=== PATIENT | female | born 1975 | race American Indian/Alaskan Native ===

== ENCOUNTER 2017-12-14 17:38 | Emergency (ER) | payer MEDICARE ==
[2017-12-15] MEDS ORDERED: MOTRIN PO ONE ×2 (01:48)
--- NOTE | 2017-12-15 01:48 | Emergency Department Report ---
ED Chest Pain HPI - General Chief Complaint: Extremity Injury, Upper Stated Complaint: CHEST/LEFT ARM PAIN/NUMBNESS Time Seen by Provider: 12/15/17 01:47 Source: patient Mode of arrival: Ambulatory Limitations: No Limitations - History of Present Illness Initial Comments: Patient reports that she has pain under her left arm for the last 12 hours. This is prior to coming to the emergency room. She says she has numbness in her left hand. Patient states she started having pain under her left breast that she felt could've been from her bra. She states she had a cold last week but not the flu. She is also reporting that she has pinkeye that is painful at 2 out of 10 worse with blinking and says it feels like there is something in her eye. Patient said her eye pain has been ongoing for a week. She denies any trauma. She denies any loss of vision but reports decreased vision to right eye. Pain to left axilla is 4 out of 10 and dull. Patient says she took [id number] medication which didn't help. She denies any trauma. Patient has a medical history of migraine headache .she denies any shortness of breath. Denies any nausea or vomiting. Denies any fever or chills. Patient does not have a primary care physician but she does have insurance. She's had a lumpectomy on the left breast area when she was 14 years old and said that she doesn't know if it was good or bad lump. She said her family never goes to Dr. so she never goes. Complaint: chest pain, other (right eye pain with redness and foreign body sensation) Onset/Timin -: hour(s) Onset: during rest Pain Location: left chest Pain Radiation: LUE Severity: mild Severity scale (0 -10): 3 Quality: dull Consistency: intermittent Improves With: nothing Worsens With: palpation, movement Context: other (unsure. She said probably from her bra) re: denies: nausea, vomting, diaphoresis, dyspnea, sense of impending doom Other Symptoms: other (right eye redness with pain). denies: cough, fever, syncope, rash, acid taste in mouth, leg swelling, palpitations, burping Treatments Prior to Arrival: none Aspirin use within the Past 7 Days: (0) No - Related Data On Oral Contraceptives: No Previous Rx's Medication Instructions Recorded Last Taken Type Gentamicin 0.3% Ophth Soln 2 drops OD Q4H #1 bottle 01/22/14 Unknown Rx Ibuprofen [Motrin] 600 mg PO Q8H PRN #60 tablet 01/22/14 Unknown Rx Gentamicin 0.3% Ophth Soln 2 drops OD Q8H 7 Days #1 bottle 12/15/17 Unknown Rx Naproxen [Naprosyn TAB] 500 mg PO BID 5 Days #10 tablet 12/15/17 Unknown Rx Ranitidine HCl [Zantac] 150 mg PO BID 30 Days #15 tablet 12/15/17 Unknown Rx Allergies Allergy/AdvReac Type Severity Reaction Status Date / Time codeine Allergy Anaphylaxis Verified 01/21/14 23:41 Heart Score - HEART Score History: Slightly suspicious EKG: Normal Age: < 45 Risk factors: No known risk factors Troponin: < normal limit HEART Score: 0 - Critical Actions Critical Actions: 0-3 pts:0.9-1.7%risk of adverse cardiac event.Candidate for discharge ED Review of Systems ROS: Stated complaint: CHEST/LEFT ARM PAIN/NUMBNESS Other details as noted in HPI Comment: All other systems reviewed and negative Constitutional: no symptoms reported Eyes: eye pain, vision change (decrease in vision to right eye). denies: eye discharge ENT: denies: ear pain, throat pain, dental pain, hearing loss, epistaxis, congestion Respiratory: no symptoms reported Cardiovascular: chest pain (left axilla). denies: palpitations, dyspnea on exertion, orthopnea, edema, syncope, paroxysmal nocturnal dyspnea Gastrointestinal: denies: abdominal pain, nausea, vomiting, diarrhea, constipation, hematemesis, melena, hematochezia Genitourinary: denies: dysuria, hematuria, abnormal menses, dyspareunia Musculoskeletal: denies: back pain, joint swelling, arthralgia, myalgia Skin: denies: rash Neurological: numbness. denies: headache, weakness, paresthesias, confusion, abnormal gait, vertigo ED Past Medical Hx - Past Medical History Previous Medical History?: Yes Hx Headaches / Migraines: Yes - Surgical History Past Surgical History?: Yes Additional Surgical History: c-sections. Tubal . Lumpectomy - Family History Family history: no significant - Social History Smoking Status: Current Every Day Smoker Substance Use Type: Alcohol - Medications Home Medications: Home Medications Medication Instructions Recorded Confirmed Last Taken Type Gentamicin 0.3% Ophth Soln 2 drops OD Q4H #1 bottle 01/22/14 01/23/14 Unknown Rx Ibuprofen [Motrin] 600 mg PO Q8H PRN #60 tablet 01/22/14 01/23/14 Unknown Rx Gentamicin 0.3% Ophth Soln 2 drops OD Q8H 7 Days #1 bottle 12/15/17 Unknown Rx Naproxen [Naprosyn TAB] 500 mg PO BID 5 Days #10 tablet 12/15/17 Unknown Rx Ranitidine HCl [Zantac] 150 mg PO BID 30 Days #15 tablet 12/15/17 Unknown Rx ED Physical Exam - General Limitations: No Limitations General appearance: alert, in no apparent distress - Head Head exam: Present: atraumatic, normocephalic, normal inspection - Eye Eye exam: Present: PERRL, EOMI, conjunctival injection (right conjunctival injection). Absent: normal appearance, scleral icterus, nystagmus, periorbital swelling, periorbital tenderness Pupils: Present: normal accommodation. Absent: irregular, unequal, miosis, mydriatic - Expanded Eye Exam Expanded Eyelids: Normal Inspection: Right (bilateral) Pupils: Regular, Round: Bilateral, Reactive: Bilateral Sclera/Conjunctival: Normal Inspection: Left, Injection: Right Anterior chamber: Normal Inspection: Bilateral Posterior chamber: Normal Inspection: Bilateral Visual acuity (R) = 20/: 40 Visual acuity (L) = 20/: 15 (both eyes 20/15) With correction: No (no contact) - ENT ENT exam: Present: normal exam, normal orophraynx, mucous membranes moist - Neck Neck exam: Present: normal inspection, full ROM, other (C-spine tenderness). Absent: tenderness, meningismus, lymphadenopathy, thyromegaly - Respiratory Respiratory exam: Present: normal lung sounds bilaterally, chest wall tenderness (left lateral mid axillary line extending up to axilla). Absent: respiratory distress, accessory muscle use - Cardiovascular Cardiovascular Exam: Present: regular rate, normal rhythm, normal heart sounds. Absent: systolic murmur, diastolic murmur - GI/Abdominal GI/Abdominal exam: Present: soft, normal bowel sounds. Absent: distended, tenderness, guarding, rebound, rigid, organomegaly, mass, bruit, pulsatile mass , hernia - Bi-manual exam: Present: other (referred to other exam information for details on breast exam.) - Extremities Exam Extremities exam: Present: normal inspection, full ROM, normal capillary refill , other (no clubbing, cyanosis or edema. +2 pulses all extremities). Absent: tenderness, pedal edema, joint swelling, calf tenderness - Back Exam Back exam: Present: normal inspection, full ROM. Absent: tenderness, CVA tenderness (R), CVA tenderness (L), muscle spasm, paraspinal tenderness, vertebral tenderness, rash noted - Neurological Exam Neurological exam: Present: alert, oriented X3, normal gait, reflexes normal. Absent: motor sensory deficit - Psychiatric Psychiatric exam: Present: normal affect, normal mood - Skin Skin exam: Present: warm, dry, intact, normal color. Absent: rash - Other Other exam information: Breast exam:Breast EXAM: Devang Breast exam breast is symmetrical and sitting position. No bulging noted. Skin has no dimpling or retraction, no edema, ulceration or erythema. No eczema tests area on breasts. Nipples are symmetric without retraction. No nipple discharge or crusting. No palpable nodule .tender to palpate left lateral mid axillary line extending up to axilla without any erythema. No adenopathy to regional lymph nodes to include , supraclavicular, infraclavicular and axillary area. ED Course Vital Signs 12/14/17 12/15/17 17:45 05:27 Temperature 98 F 98.7 F Pulse Rate 90 66 Respiratory 16 17 Rate Blood Pressure 139/98 Blood Pressure 131/77 [Right] O2 Sat by Pulse 98 100 Oximetry - Reevaluation(s) Reevaluation #1: 12/15/17 05:07 Patient received Motrin 600 mg by mouth for pain which relieved her pain. Chest wall left side positive reproducible pain. Numbness comes and goes none now - Procedure Description Procedures done: Right eye procedure: Right eye instilled with tetracaine 2 drops which patient reports is burning. Fluorescein stain into right eye with immediate uptake. Right eye examine under Wood lamp and small corneal abrasion noted. Patient tetanus vaccine is up-to-date. Right eye flushed with sterile saline. Pain is better since tetracaine instilled. See details in chart for visual acuity testing JED score - Jed Score Age > 65: (0) No Aspirin use within the Past 7 Days: (0) No 3 or more CAD Risk Factors: (0) No 2 or more Angina events in past 24 hrs: (0) No Known CAD with more than 50% Stenosis: (0) No Elevated Cardiac Markers: (0) No ST Deviation Greater than 0.5mm: (0) No JED Score: 0 ED Medical Decision Making - Lab Data Result diagrams: 12/15/17 02:07 Lab Results 12/15/17 Range/Units 02:07 Sodium 143 (137-145) mmol/L Potassium 4.2 (3.6-5.0) mmol/L Chloride 103.1 (98-107) mmol/L Carbon Dioxide 28 (22-30) mmol/L Anion Gap 16 mmol/L BUN 14 (7-17) mg/dL Creatinine 0.5 L (0.7-1.2) mg/dL Estimated GFR > 60 ml/min BUN/Creatinine Ratio 28 % Glucose 90 (65-100) mg/dL Calcium 9.4 (8.4-10.2) mg/dL Troponin T < 0.010 (0.00-0.029) ng/mL - EKG Data -: EKG Interpreted by Me (attending physician ) EKG shows normal: sinus rhythm (86 bpm) Rate: normal - EKG Data Interpretation: no acute changes, normal EKG - Radiology Data Radiology results: report reviewed Chest x-ray reveals no acute cardiopulmonary findings - Medical Decision Making ED course: He reports that she is having right eye redness with feeling off narvaez body sensation and pain for one week. She says she woke up with her eye with crusting one week ago. She says she's been using Visine but is getting worse. Patient is also complaining of left chest pain without any shortness of breath and per rule paste placed her at 0 score and she is low risk for pulmonary embolism. Patient also low risk for cardiac event. Patient says she wasn't sure if it's her bra that cause her to have pain but physical findings for tenderness to palpate to left chest wall lateral to left breast extending over to midaxillary line and tenderness extending to left axilla. She doesn't have any signs of infection. No lymph nodes. Bilateral breast exam done without any abnormal findings. Please see detailed in physical exam section. Patient says when she was 14 she had a lumpectomy from her left breast and she has insurance but she does not follow up with any primary care physician for mammogram and/or physical exam or Pap smear. I discussed with her that she needs to follow up and schedule mom gram and also Pap smear. I told her that she can go to [facility] and requests physical exam along with Pap smear and they can schedule her for outpatient mammogram. I discussed with her she will need to call this morning to schedule an appointment for primary care visit at [facility]. She voiced understanding. Patient with costochondritis and corneal abrasion. EKG stable with no abnormalities and no ST or T waves abnormalities. Sinus rhythm. Chest chest reveals no acute cardiopulmonary findings. Troponin normal. BNP is stable. Patient discharged home in stable condition with prescription for naproxen and gentamicin ophthalmic to follow-up with 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 Critical care attestation.: If time is entered above; I have spent that time in minutes in the direct care of this critically ill patient, excluding procedure time. ED Disposition Clinical Impression: Atypical chest pain, Left-sided chest wall pain, Costochondral chest pain, Acute right eye pain Corneal abrasion, right Qualifiers: Encounter type: initial encounter Qualified Code(s): S05.01XA - Injury of conjunctiva and corneal abrasion without foreign body, right eye, initial encounter Disposition: TO HOME OR SELFCARE Is pt being admited?: No Does the pt Need Aspirin: No Condition: Stable Instructions: Chest Pain (ED), Breast Self-exam (ED), Mammogram (ED), Corneal Abrasion (ED), Costochondritis (ED) Additional Instructions: Please follow up at [facility] call later this morning to schedule an appointment for physical exam for female, lead them know he'll need a Pap smear and breast exam. You need to have a mammogram and a pelvic exam done See referral to [facility]. Or Dilshad Baum requests [facility] at [facility] Use antibiotic eyedrops as instructed Use naproxen for chest wall inflammation and I would like you to follow up with a senior architectural designer for further testing. Take Tylenol 3 for eye pain as prescribed but please do not drive or operate heavy machinery while taking this medication Prescriptions: Gentamicin 0.3% Ophth Soln 2 drops OD Q8H 7 Days #1 bottle Naproxen [Naprosyn TAB] 500 mg PO BID 5 Days #10 tablet Ranitidine HCl [Zantac] 150 mg PO BID 30 Days #15 tablet Referrals: [facility] [Outside] - 12/17/17 MIGUELANGEL YEH MD [Staff Physician] - 2-3 Days TATE DAVID MD [Staff Physician] - 12/18/17 JUAN J RACHEL MD [Staff Physician] - 12/17/17 Forms: Accompanied Note, Work/School Release Form(ED)
--- NOTE | 2017-12-15 02:25 | XRay Report ---
FINAL REPORT PROCEDURE: XR CHEST ROUTINE 2V TECHNIQUE: PA and lateral chest radiographs were obtained. CPT 38051 HISTORY: cough/cp COMPARISON: No prior studies are available for comparison. FINDINGS: Heart: Normal. Mediastinum/Vessels: Normal. Lungs/Pleural space: Lungs are clear and expanded. There are no infiltrates, effusions or pneumothoraces. Bony thorax: No acute osseous abnormality. Other: IMPRESSION: Normal examination.
[2017-12-15 02:43] LABS: BUN/Creatinine Ratio 28; Blood Urea Nitrogen 14 mg/dL (7-17); Calcium 9.4 mg/dL (8.4-10.2); Hemolysis Index 9
[2017-12-15] MEDS ORDERED: FUL-GLO OP ONE (05:00)
[2017-12-15] MEDS ORDERED: TETRACAINE 0.5% OD ONE (05:01)
[2017-12-15 05:28] VITALS: BP 131/77
== END 2017-12-15 05:38 | disposition home or self-care (01) ==
LOC: ED 17:38
DX: R07.89 Other chest pain (principal); S05.01XA Injury of conjunctiva and corneal abrasion without foreign body, right eye, initial encounter; G43.909 Migraine, unspecified, not intractable, without status migrainosus; F17.200 Nicotine dependence, unspecified, uncomplicated; Z88.6 Allergy status to analgesic agent; X58.XXXA Exposure to other specified factors, initial encounter; Y93.89 Activity, other specified; Y92.89 Other specified places as the place of occurrence of the external cause; Y99.8 Other external cause status
CPT/HCPCS: 36415; 71046; 80048; 84484; 93005; 93010; 99284

== ENCOUNTER 2020-10-15 23:38 | Emergency (ER) | payer MEDICARE ==
[2020-10-16 00:28] VITALS: BP 154/106
[2020-10-16] MEDS ORDERED: ONDANSETRON 4 MG ODT TAB PO ONE (03:05)
[2020-10-16] MEDS ORDERED: MAGIC MOUTHWASH 30ML PO ONE (03:05)
[2020-10-16] MEDS ORDERED: CLINDAMYCIN 150 MG/ML VIAL 6 ML IM ONE (03:05)
[2020-10-16] MEDS ORDERED: oxyCODONE /ACETAMINOPHEN 5-325MG TAB PO ONE (03:05)
[2020-10-16] MEDS ORDERED: CLINDAMYCIN 300 MG CAP PO ONE (03:06)
[2020-10-16] MEDS ORDERED: KETOROLAC 30 MG/1 ML INJ IM ONE (03:06)
--- NOTE | 2020-10-16 04:57 | Emergency Department Report ---
ED General Adult HPI - General Chief complaint: Dental/Oral Stated complaint: MOUTH INFECTION PUI?: No Source: patient Mode of arrival: Ambulatory Limitations: No Limitations - History of Present Illness Initial comments: Patient is a 45-year-old -[place] female with a history of migraine headaches who presents to the ED with complaint of acute onset persistent bilateral and diffuse ulcerated lesions in the gums as well as bilateral mandibular premolar and molar toothache for 2 months, worse in the last 2 weeks. Patient states that she had a tooth extraction about 2 months ago and has had 2 take 2 rounds of oral antibiotics the first of which was amoxicillin and subsequently was given Augmentin with no relief. Patient states that in the last 2 weeks, these lesions and pain have worsened such that she is unable to eat because of pain. Patient denies dizziness, syncope, fever, chills, nausea, vomiting, sore throat, chest pain or shortness of breath, change in vision, neck pain, abdominal pain, headache or cough. MD Complaint: dental pain; swollen ulcerated painful gums -: Sudden, month(s) (1) Location: mouth Radiation: non-radiation Severity scale (0 -10): 8 Quality: aching, sharp Consistency: constant Improves with: none Worsens with: none Associated Symptoms: denies other symptoms. denies: confusion, chest pain, cough, diaphoresis, fever/chills, headaches, malaise, nausea/vomiting, rash, seizure, shortness of breath, syncope, weakness Treatments Prior to Arrival: NSAID - Related Data Previous Rx's Medication Instructions Recorded Last Taken Type Gentamicin 0.3% Ophth Soln 2 drops OD Q4H #1 bottle 01/22/14 Unknown Rx Ibuprofen [Motrin] 600 mg PO Q8H PRN #60 tablet 01/22/14 Unknown Rx Gentamicin 0.3% Ophth Soln 2 drops OD Q8H 7 Days #1 bottle 12/15/17 Unknown Rx Naproxen [Naprosyn TAB] 500 mg PO BID 5 Days #10 tablet 12/15/17 Unknown Rx raNITIdine HCl [Zantac] 150 mg PO BID 30 Days #15 tablet 12/15/17 Unknown Rx Amoxicillin/Potassium Clav 1 each PO BID 10 Days #20 tablet 03/29/20 Unknown Rx [Augmentin 875-125 Tablet] Ibuprofen [Motrin 800 MG tab] 800 mg PO Q8HR PRN #30 tablet 03/29/20 Unknown Rx predniSONE [Deltasone] 40 mg PO QDAY 5 Days #10 tab 03/29/20 Unknown Rx Clindamycin [Clindamycin CAP] 300 mg PO Q8HR #60 capsule 10/16/20 Unknown Rx Ketorolac [Toradol] 10 mg PO Q8H PRN #20 tablet 10/16/20 Unknown Rx Nystatin [Nystatin SUSP] 10 ml PO TID #300 ml 10/16/20 Unknown Rx traMADoL [Ultram] 50 mg PO Q6HR PRN #12 tab 10/16/20 Unknown Rx Allergies Allergy/AdvReac Type Severity Reaction Status Date / Time codeine Allergy Anaphylaxis Verified 03/29/20 03:47 ED Review of Systems ROS: Stated complaint: MOUTH INFECTION Other details as noted in HPI Constitutional: denies: chills, fever Eyes: denies: eye pain, eye discharge, vision change ENT: dental pain, other (Swollen painful gums; ulcerated lesions in the gums and dental pain). denies: ear pain, throat pain Respiratory: denies: cough, shortness of breath, wheezing Cardiovascular: denies: chest pain, palpitations Endocrine: no symptoms reported Gastrointestinal: denies: abdominal pain, nausea, diarrhea Genitourinary: denies: urgency, dysuria, discharge Musculoskeletal: denies: back pain, joint swelling, arthralgia Skin: denies: rash, lesions Neurological: denies: headache, weakness, paresthesias Psychiatric: denies: anxiety, depression Hematological/Lymphatic: denies: easy bleeding, easy bruising ED Past Medical Hx - Past Medical History Previous Medical History?: Yes Hx Headaches / Migraines: Yes - Surgical History Past Surgical History?: Yes Additional Surgical History: c-sections X5. Tubal . Lumpectomy - Social History Smoking Status: Current Every Day Smoker Substance Use Type: Alcohol - Medications Home Medications: Home Medications Medication Instructions Recorded Confirmed Last Taken Type Gentamicin 0.3% Ophth Soln 2 drops OD Q4H #1 bottle 01/22/14 01/23/14 Unknown Rx Ibuprofen [Motrin] 600 mg PO Q8H PRN #60 tablet 01/22/14 01/23/14 Unknown Rx Gentamicin 0.3% Ophth Soln 2 drops OD Q8H 7 Days #1 bottle 02/06/18 Unknown Rx Naproxen [Naprosyn TAB] 500 mg PO BID 5 Days #10 tablet 12/15/17 Unknown Rx raNITIdine HCl [Zantac] 150 mg PO BID 30 Days #15 tablet 12/15/17 Unknown Rx Amoxicillin/Potassium Clav 1 each PO BID 10 Days #20 tablet 03/29/20 Unknown Rx [Augmentin 875-125 Tablet] Ibuprofen [Motrin 800 MG tab] 800 mg PO Q8HR PRN #30 tablet 03/29/20 Unknown Rx predniSONE [Deltasone] 40 mg PO QDAY 5 Days #10 tab 03/29/20 Unknown Rx Clindamycin [Clindamycin CAP] 300 mg PO Q8HR #60 capsule 10/16/20 Unknown Rx Ketorolac [Toradol] 10 mg PO Q8H PRN #20 tablet 10/16/20 Unknown Rx Nystatin [Nystatin SUSP] 10 ml PO TID #300 ml 10/16/20 Unknown Rx traMADoL [Ultram] 50 mg PO Q6HR PRN #12 tab 10/16/20 Unknown Rx ED Physical Exam - General Limitations: No Limitations General appearance: alert, in no apparent distress - Head Head exam: Present: atraumatic, normocephalic, normal inspection - Eye Eye exam: Present: normal appearance, PERRL, EOMI Pupils: Present: normal accommodation - ENT ENT exam: Present: mucous membranes moist, TM's normal bilaterally, normal external ear exam, other (Ulcerated tender lesion diffusely in the gums with swelling; bilateral mandibular premolar teeth tenderness) - Neck Neck exam: Present: normal inspection, full ROM, lymphadenopathy. Absent: tenderness - Respiratory Respiratory exam: Present: normal lung sounds bilaterally. Absent: respiratory distress, wheezes, rhonchi, stridor, chest wall tenderness, accessory muscle use, prolonged expiratory - Cardiovascular Cardiovascular Exam: Present: regular rate, normal rhythm, normal heart sounds. Absent: systolic murmur, diastolic murmur, rubs, gallop - GI/Abdominal GI/Abdominal exam: Present: soft, normal bowel sounds. Absent: distended, tenderness, guarding, hyperactive bowel sounds, hypoactive bowel sounds, organomegaly, mass - Extremities Exam Extremities exam: Present: normal inspection, full ROM, normal capillary refill - Back Exam Back exam: Present: normal inspection, full ROM. Absent: tenderness, CVA tenderness (R), CVA tenderness (L), muscle spasm, paraspinal tenderness, vertebral tenderness - Neurological Exam Neurological exam: Present: alert, oriented X3, CN II-XII intact, normal gait, reflexes normal - Psychiatric Psychiatric exam: Present: normal affect, normal mood - Skin Skin exam: Present: warm, dry, intact, normal color. Absent: rash ED Course Vital Signs 10/16/20 00:25 Temperature 98.5 F Pulse Rate 95 H Respiratory 18 Rate Blood Pressure 154/106 O2 Sat by Pulse 100 Oximetry ED Medical Decision Making - Medical Decision Making This is a 45-year-old -[place] female with a history of migraine headaches who presents to the ED with complaint of acute onset persistent bilateral and diffuse ulcerated lesions in the gums as well as bilateral mandibular premolar and molar toothache for 2 months, worse in the last 2 weeks. Patient states that she had a tooth extraction about 2 months ago and has had 2 take 2 rounds of oral antibiotics the first of which was amoxicillin and subsequently was given Augmentin with no relief. Patient states that in the last 2 weeks, these lesions and pain have worsened such that she is unable to eat because of pain. In the ED, patient is alert and oriented x3 and is not in distress. Patient was treated for pain in the ED and also given initial oral antibiotics. On reevaluation, patient's pain is well controlled medications. Patient was discharged home on medications and advised to follow-up with her dentist or primary care physician in 7 to 10 days for reevaluation or return to the ED immediately if symptoms get worse. - Differential Diagnosis Dental abscess; gingivitis; dental caries; oral lesions Critical care attestation.: If time is entered above; I have spent that time in minutes in the direct care of this critically ill patient, excluding procedure time. ED Disposition Clinical Impression: Acute ulcerative gingivitis, Dental abscess, Dental caries noted on examination, Oral ulceration Disposition: DC-01 TO HOME OR SELFCARE Is pt being admited?: No Does the pt Need Aspirin: No Condition: Stable Instructions: Dental Abscess, Dust-sy-Gvfr, Trench Mouth, Oral Mucositis Additional Instructions: Take medication with food, drink plenty of fluids and follow-up with your primary care physician in 7 to 10 days for reevaluation. Return to the ED immediately if symptoms get worse. Prescriptions: Clindamycin [Clindamycin CAP] 300 mg PO Q8HR #60 capsule Nystatin [Nystatin SUSP] 10 ml PO TID #300 ml Ketorolac [Toradol] 10 mg PO Q8H PRN #20 tablet PRN Reason: Pain traMADoL [Ultram] 50 mg PO Q6HR PRN #12 tab PRN Reason: Pain Referrals: [facility] [Outside] - 3-5 Days Forms: Work/School Release Form(ED) Time of Disposition: 04:58 Print Language: LUXEMBOURGER
== END 2020-10-16 05:23 | disposition home or self-care (01) ==
LOC: ED 23:38
DX: K04.7 Periapical abscess without sinus (principal); K05.00 Acute gingivitis, plaque induced; K02.9 Dental caries, unspecified; K12.1 Other forms of stomatitis; G43.909 Migraine, unspecified, not intractable, without status migrainosus; F17.200 Nicotine dependence, unspecified, uncomplicated; Z98.890 Other specified postprocedural states; Z79.1 Long term (current) use of non-steroidal anti-inflammatories (NSAID); Z79.2 Long term (current) use of antibiotics; Z79.899 Other long term (current) drug therapy; Z88.8 Allergy status to other drugs, medicaments and biological substances
CPT/HCPCS: 96372; 99282; J1885; Q0162